=== PATIENT | female | born 1955 | race Caucasian/White ===

== ENCOUNTER 2022-12-29 17:03 | Emergency (ER) | payer MEDICARE, BC, OTHER ==
[~2022-12-29] VITALS: Ht 165.1 cm; Wt 104.7 kg
[2022-12-29] MEDS ORDERED: ACETAMINOPHEN TAB 650MG DOSE (2X325MG) PO ONE (17:35)
[2022-12-29 18:07] LABS: BASO % 0.6 % (0.0-1.0); EOS # 0.2 10^3/uL (0.0-0.5); EOS % 2.4 % (0.0-3.0); HEMATOCRIT 46.9 % (36.0-47.0); HEMOGLOBIN 15.3 g/dl (12.0-15.5); LYMPH # 1.9 10^3/uL (1.5-5.0); LYMPH % 26.4 % (24.0-44.0); MEAN CORPUSCULAR HEMOGLOBIN 32.4 pg (27.0-33.0); MEAN CORPUSCULAR HGB CONC 32.6 g/dl (32.0-36.5); MEAN CORPUSCULAR VOLUME 99.4 fl (80.0-96.0); MONO # 0.6 10^3/uL (0.0-0.8); MONO % 8.4 % (2.0-8.0); NEUTROPHILS # 4.4 10^3/uL (1.5-8.5); NEUTROPHILS % 61.9 % (36.0-66.0); PLATELET COUNT, AUTOMATED 146 10^3/uL (150-450); RED BLOOD COUNT 4.72 10^6/uL (4.00-5.40); WHITE BLOOD COUNT 7.1 10^3/uL (4.0-10.0)
[2022-12-29 18:44] LABS: INR 0.81; PROTHROMBIN TIME 11.4 SECONDS (12.5-14.5)
[2022-12-29 18:45] LABS: PARTIAL THROMBOPLASTIN TIME 26.9 SECONDS (24.8-34.2)
[2022-12-29] MEDS ORDERED: ELIQ5TAB PO (19:23)
[2022-12-29] MEDS ORDERED: APIXABAN 5 MG TAB (ELIQUIS) PO ONE (19:30)
[2022-12-29 19:33] VITALS: BP 156/92
== END 2022-12-29 19:34 | disposition home or self-care (01) ==
LOC: M ED 17:03
DX: I82.622 Acute embolism and thrombosis of deep veins of left upper extremity (principal); I10 Essential (primary) hypertension; E03.9 Hypothyroidism, unspecified; Z88.1 Allergy status to other antibiotic agents

== ENCOUNTER → 2023-12-08 | Outpatient (CLI) | payer MEDICARE, BC, OTHER ==
[~2023-12-08] MED LIST: ELIQ5TAB PO
== END ==
LOC: M SOG 13:24
PROVIDERS: ATTEND Physician Assistant
DX: M79.641 Pain in right hand (principal)

== ENCOUNTER → 2024-01-12 | Outpatient (CLI) | payer MEDICARE, OTHER | LOC: M SOG 13:50 | PROVIDERS: ATTEND Physician Assistant | DX: M25.561 Pain in right knee (principal); M17.11 Unilateral primary osteoarthritis, right knee ==

== ENCOUNTER → 2024-02-28 | Outpatient (CLI) | payer MEDICARE, OTHER ==
[~2024-02-28] MED LIST changes: +AMLO1TAB24; +ASPI81CH33 PO; +CALC500C16 PO; +CLAR5TAB11 PO; +LEVO100T5; +OMEG-28; +THERTAB52 PO; +VENL150C43
[2024-02-28 17:09] LABS: BASO % 0.6 % (0.0-1.0); EOS # 0.2 10^3/uL (0.0-0.5); EOS % 2.9 % (0.0-3.0); HEMATOCRIT 45.7 % (36.0-47.0); HEMOGLOBIN 15.4 g/dl (12.0-15.5); LYMPH # 1.8 10^3/uL (1.5-5.0); LYMPH % 28.1 % (24.0-44.0); MEAN CORPUSCULAR HEMOGLOBIN 33.6 pg (27.0-33.0); MEAN CORPUSCULAR HGB CONC 33.7 g/dl (32.0-36.5); MEAN CORPUSCULAR VOLUME 99.6 fl (80.0-96.0); MONO # 0.6 10^3/uL (0.0-0.8); MONO % 9.3 % (2.0-8.0); NEUTROPHILS # 3.8 10^3/uL (1.5-8.5); NEUTROPHILS % 58.9 % (36.0-66.0); PLATELET COUNT, AUTOMATED 149 10^3/uL (150-450); RED BLOOD COUNT 4.59 10^6/uL (4.00-5.40); WHITE BLOOD COUNT 6.5 10^3/uL (4.0-10.0)
[2024-02-28 17:31] LABS: D-DIMER QUANT 1.2 ug/mL (<0.5); INR 0.92; PARTIAL THROMBOPLASTIN TIME 25.8 SECONDS (24.8-34.2); PROTHROMBIN TIME 12.1 SECONDS (12.5-14.5)
[2024-02-28 17:53] LABS: VITAMIN B12 LEVEL 606 PG/ML (211-911)
[2024-02-28 17:54] LABS: FOLATE > 24.0 NG/ML (>5.4)
[2024-03-06 06:55] LABS: JAK2 MUTATIONS FOR PATH SENDOU See Pathology Report
[2024-03-07 13:08] LABS: ERYTHROPOIETIN 10.9 mIU/mL (2.6-18.5)
== END ==
LOC: M LAB 16:31
PROVIDERS: ATTEND Internal Medicine Hematology & Oncology
DX: D75.1 Secondary polycythemia (principal); D69.6 Thrombocytopenia, unspecified

== ENCOUNTER → 2024-05-10 | Outpatient (CLI) | payer MEDICARE, OTHER ==
[2024-05-10 16:54] LABS: CREATININE FOR GFR 1.04 MG/DL (0.55-1.30); GLOMERULAR FILTRATION RATE 55.9 (>45)
== END ==
LOC: M LAB 15:49
PROVIDERS: ATTEND Physician Assistant
DX: N28.89 Other specified disorders of kidney and ureter (principal)

== ENCOUNTER → 2024-08-08 | Outpatient (CLI) | payer MEDICARE, OTHER ==
[2024-08-08 18:06] LABS: BASO % 0.4 % (0.0-1.0); EOS # 0.2 10^3/uL (0.0-0.5); HEMATOCRIT 45.3 % (36.0-47.0); HEMOGLOBIN 15.2 g/dl (12.0-15.5); LYMPH # 1.5 10^3/uL (1.5-5.0); LYMPH % 28.7 % (24.0-44.0); MEAN CORPUSCULAR HEMOGLOBIN 33.2 pg (27.0-33.0); MEAN CORPUSCULAR HGB CONC 33.6 g/dl (32.0-36.5); MEAN CORPUSCULAR VOLUME 98.9 fl (80.0-96.0); MONO # 0.5 10^3/uL (0.0-0.8); MONO % 10.1 % (2.0-8.0); NEUTROPHILS # 2.9 10^3/uL (1.5-8.5); NEUTROPHILS % 57.6 % (36.0-66.0); RED BLOOD COUNT 4.58 10^6/uL (4.00-5.40); WHITE BLOOD COUNT 5.1 10^3/uL (4.0-10.0)
[2024-08-08 18:30] LABS: ALBUMIN 3.3 G/DL (3.2-5.2); BILIRUBIN,TOTAL 0.5 MG/DL (0.3-1.2); CALCIUM LEVEL 9.1 MG/DL (8.3-10.6); CHOLESTEROL RISK RATIO 3.36 (<5); CREATININE FOR GFR 1.13 MG/DL (0.55-1.30); GLOMERULAR FILTRATION RATE 50.7 (>39); HDL CHOLESTEROL 66.6 MG/DL (>40); LDL CHOLESTEROL 140.8 MG/DL (<100); NON-HDL-C 157.4 MG/DL; POTASSIUM SERUM 4.5 MMOL/L (3.5-5.1); TOTAL PROTEIN 6.8 G/DL (5.7-8.2)
[2024-08-08 18:32] LABS: FREE T4 1.42 NG/DL (0.89-1.76); THYROID STIMULATING HORMONE 0.935 uIU/ML (0.55-4.78); TOTAL 25(OH) VITAMIN D 44.8 NG/ML (20.0-100.0)
[2024-08-08 18:56] LABS: APPEARANCE, URINE CLEAR (CLEAR); BACTERIA, URINE AUTO NEGATIVE (NEGATIVE); BILIRUBIN, URINE AUTO NEGATIVE (NEGATIVE); BLOOD, URINE BLOOD NEGATIVE (NEGATIVE); COLOR, URINE YELLOW (YELLOW); GLUCOSE, URINE (UA) AUTO NEGATIVE (NEGATIVE); KETONE, URINE AUTO NEGATIVE (NEGATIVE); LEUKOCYTE ESTERASE, URINE AUTO NEGATIVE (NEGATIVE); NITRITE, URINE AUTO NEGATIVE (NEGATIVE); PROTEIN, URINE AUTO NEGATIVE (NEGATIVE); RBC, URINE AUTO 0 /HPF (0-3); SPECIFIC GRAVITY URINE AUTO 1.015 (1.002-1.035); SQUAMOUS EPITHELIAL CELL UR AU 0 /HPF (0-6); UROBILINOGEN, URINE AUTO 0.2 mg/dL (0.0-2.0); WBC, URINE AUTO 0 /HPF (0-3)
[2024-08-08 19:18] LABS: HEMOGLOBIN A1c 5.4 % (4.0-6.0)
[2024-08-08 19:26] LABS: CREATININE, URINE 112.2 MG/DL; MAU/CREAT RATIO 4.4 MCG/MG (0.0-30.0)
== END ==
LOC: M LAB 17:07
PROVIDERS: ATTEND Physician Assistant Medical
DX: I73.00 Raynaud's syndrome without gangrene (principal); Z68.37 Body mass index [BMI] 37.0-37.9, adult; K21.9 Gastro-esophageal reflux disease without esophagitis; D75.1 Secondary polycythemia; R73.03 Prediabetes; J45.909 Unspecified asthma, uncomplicated; H35.30 Unspecified macular degeneration; N18.2 Chronic kidney disease, stage 2 (mild)

== ENCOUNTER → 2024-08-09 | Outpatient (CLI) | payer MEDICARE, OTHER ==
[~2024-08-09] MED LIST changes: +LIDOCAINE 1% MDV 20ML VIAL As Ordered ONE
[2024-08-09 12:20] VITALS: TEMP 97.8
[2024-08-09 12:55] VITALS: BP 177/84; O2SAT 98
[2024-08-09 14:07] LABS: CRYSTALS, BODY FLUID NONE SEEN (NONE SEEN); SOURCE, BODY FLUID CRYSTALS RT KNEE
[2024-08-09 14:20] LABS: SOURCE, BODY FLUID RT KNEE; SYNOVIAL FLUID COLOR YELLOW (COLORLESS)
== END ==
LOC: M IRPRO 12:08
PROVIDERS: ATTEND Orthopaedic Surgery Hand Surgery
DX: M71.21 Synovial cyst of popliteal space [Baker], right knee (principal)